=== PATIENT | female | born 2000 | race Caucasian/White ===

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

== ENCOUNTER 2021-01-27 17:58 | Emergency (ER) | payer OTHER ==
[~2021-01-27] VITALS: Ht 175.3 cm; Wt 62.1 kg
--- NOTE | 2021-01-27 18:27 | NUR ---
[email or web address], medical screening exam in progress
[2021-01-27] MEDS ORDERED: HYDR-4209 PO (18:55)
--- NOTE | 2021-01-27 19:13 | NUR ---
Patient discharged to home in stable condition. Written and verbal after care instructions given to patient. Patient verbalized understanding & compliance of instructions. Stressed follow up with her primary doctor and a hand surgeon or return to ER for worsening s/s, pending CD copy of her x-[email or web address] time.
== END 2021-01-27 19:15 | disposition home or self-care (01) ==
LOC: ER 17:58
DX: S62.655A Nondisplaced fracture of middle phalanx of left ring finger, initial encounter for closed fracture (principal); W21.01XA Struck by football, initial encounter; Y93.61 Activity, american tackle football; Y92.89 Other specified places as the place of occurrence of the external cause; Y99.8 Other external cause status
CPT/HCPCS: 73120; A4663

== ENCOUNTER 2022-03-22 15:24 | Emergency (ER) | payer OTHER ==
[~2022-03-22] VITALS: Ht 175.3 cm; Wt 63.5 kg
[~2022-03-22 15:24] MED LIST: HYDR-4209 PO
[2022-03-22] MEDS ORDERED: MORPHINE SULFATE 4 MG/1 ML DISP.SYRIN IV ONE (15:45)
[2022-03-22] MEDS ORDERED: IV NORMAL SALINE 1000 ML BAG IV ONE (15:45)
--- NOTE | 2022-03-22 16:01 | NUR ---
Nikos murry in [facility] - 03/22/22 at 1930 by JOSEPHINE SBAT to primary RN Galina
--- NOTE | 2022-03-22 16:01 | NUR ---
SBAR to primary RN Galina.
[2022-03-22] MEDS ORDERED: MORPHINE SULFATE 4 MG/1 ML DISP.SYRIN ONE (16:05)
--- NOTE | 2022-03-22 16:05 | NUR ---
Pt brought to room 1A and placed on to [facility] in pos of comfort, coinnected to monitor and VS obtained. UA specimen collected before hand and sent to lab for uhcg and UA. VSS, PE WNL, Pt complaining of mod to severe pain in lower abd area. Pt has good color and temp, NAD, pt otherwise completely healthy with no med issues. no n/v, dizziness or discomfort present. No s/sx of distress present.
--- NOTE | 2022-03-22 16:10 | NUR ---
EDMD at bedside for eval.
[2022-03-22 16:14] LABS: MEAN CORPUSCULAR HEMOGLOBIN 29.6 uug (24.7-32.8); MEAN CORPUSCULAR VOLUME 86.6 fL (75.5-95.3); PLATELET COUNT (AUTO) 265 K/uL (179-408)
[2022-03-22 16:22] LABS: CARBON DIOXIDE 26 mmol/L (21-32); CHLORIDE 102 mmol/L (98-107); CREATININE 0.9 mg/dL (0.6-1.3); GLUCOSE 95 mg/dL (74-106); POTASSIUM 3.8 mmol/L (3.5-5.1); UREA NITROGEN, BLOOD 10 mg/dL (7-18)
[2022-03-22 16:28] LABS: ALANINE AMINOTRANSFERASE 26 U/L (14-59); ALKALINE PHOSPHATASE 44 U/L (50-136); ASPARTATE AMINOTRANSFERASE 15 U/L (15-37); BILIRUBIN,DIRECT 0.1 mg/dL (0.0-0.2); BILIRUBIN,TOTAL 0.5 mg/dL (0.2-1.0); LIPASE 108 U/L (73-393); TOTAL PROTEIN, SERUM 7.8 g/dL (6.4-8.2)
--- NOTE | 2022-03-22 16:30 | NUR ---
20G angio inserted into Rt forearm without difficulty by student, site properly dressed and secured. 1L NS bolus promptly initiated per EDMD and meds administered.
[2022-03-22 16:44] LABS: *BILIRUBIN,URIN NEGATIVE (NEGATIVE); *BLOOD, URINE NEGATIVE (NEGATIVE); *CLARITY,URINE CLEAR (CLEAR); *COLOR,URINE YELLOW (YELLOW); *KETONES,URINE TRACE (NEGATIVE); *UROBILINOGEN,URINE 0.2 E.U./dl (NORMAL); LEUKOCYTE ESTERASE ,URINE NEGATIVE (NEGATIVE); NITRITE, URINE NEGATIVE (NEGATIVE); UGLUCOSE NEGATIVE (NEGATIVE)
[2022-03-22 16:45] LABS: *URINE HCG, QUAL NEGATIVE (NEGATIVE)
--- NOTE | 2022-03-22 16:45 | NUR ---
US tech at bedside to perform gullbladder US. exam completed without difficulty, results neg.
--- NOTE | 2022-03-22 18:00 | NUR ---
Pt given dc instructions and med info and confirmed understanding of aftercare. All questions answered. IV dced and site dressed with 4x4s and tape. Pt states she feels much better and is no longer in pain. no s/sxof distress present.
[2022-03-22 20:47] VITALS: BP 136/86
[2022-03-22 22:18] LABS: BACTERIA,URINE NONE SEEN /HPF (NONE SEEN); MUCUS,URINE MANY /LPF (0-FEW); RBC,URINE 0-3 /HPF (0-3); SQUAMOUS EPITHELIAL CELL,UR FEW /HPF (NONE SEEN); WBC,URINE 0-3 /HPF (0-3)
== END 2022-03-22 18:00 | disposition home or self-care (01) ==
LOC: ER 15:24
DX: R10.11 Right upper quadrant pain (principal); R94.31 Abnormal electrocardiogram [ECG] [EKG]
CPT/HCPCS: 99285; 96360; 76705; 80076; 80048; 81001; 84703; 83690; 85025; 84702; 36415; 93005; J7040; A4663; J2270

== ENCOUNTER 2023-12-15 16:34 | Emergency (ER) | payer OTHER ==
[~2023-12-15] VITALS: Ht 175.3 cm; Wt 66.7 kg
[~2023-12-15 16:34] MED LIST changes: +METO-295 PO
[2023-12-15 17:42] VITALS: BP 128/56; TEMP 98; O2SAT 98
== END 2023-12-15 17:43 | disposition home or self-care (01) ==
LOC: ER 16:35
DX: S16.1XXA Strain of muscle, fascia and tendon at neck level, initial encounter (principal); D50.0 Iron deficiency anemia secondary to blood loss (chronic); Z79.899 Other long term (current) drug therapy; X58.XXXA Exposure to other specified factors, initial encounter; Y93.89 Activity, other specified; Y92.89 Other specified places as the place of occurrence of the external cause; Y99.8 Other external cause status
CPT/HCPCS: A4606; A4663